=== PATIENT | female | born 1995 | race African-American/Black ===

== ENCOUNTER 2016-10-05 12:56 | Inpatient (IN) | payer OTHER ==
[~2016-10-05] VITALS: Ht 157.5 cm; Wt 75.0 kg
[2016-10-05] VITALS (18 sets, daily range): BP systolic 92–130; BP diastolic 51–75
[2016-10-05] MEDS ORDERED: PRENTAB9 PO (13:02)
[2016-10-05] MEDS ORDERED: LR 1,000 ML IV SCH (14:05)
[2016-10-05] MEDS ORDERED: OXYTOCIN DRIP 30 UNITS in APPROPRIATE DILUENT 1 EA IV SCH (14:15)
[2016-10-05] MEDS: LR 1,000 ML IV SCH (14:47)
[2016-10-05 15:12] LABS: MEAN CORPUSCULAR HEMOGLOBIN 29.7 pg (27.0-33.0); MEAN CORPUSCULAR HGB CONC 35.5 g/dl (32.0-36.5); MEAN CORPUSCULAR VOLUME 83.8 fl (80.0-96.0); RED CELL DISTRIBUTION WIDTH 13.9 % (11.5-14.5); WHITE BLOOD COUNT 6.4 K/mm3 (4.0-10.0)
[2016-10-05 15:56] LABS: HBSAG L&D NEGATIVE (NEGATIVE)
--- NOTE | 2016-10-05 17:28 | HPEPDOC ---
Obstetrical History & Physical General Date of Admission Oct 05, 2016 at 12:56 History of Present Illness 21 y/o at 39+0 seen by myself in clinic for an acute visit due to decr'd FM and found to have oligohydramnios. No VB or LOF. Information Provided By: Patient Care Care: Good Care Dating Final EDC: Oct 12, 2016 Final EDC by: LMP, 1st trimester (US) Antepartum Course Diagnos(e)s h/o mrsa. 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 (x1 2009 (D&C)) Past Medical History Medical History denies other than axillary mrsa 2006-no abscesses since Surgical History: Dilatation and Curettage Family History Significant Family History: No pertinent family hx Social History Marital Status: Family situation: Spouse/partner home Psychosocial History: No pertinent psych hx * Smoker: non-smoker Alcohol: Denies Drugs: denies Abuse Violence Screening Have you been hit/kicked/slapp: No Have you been sexually assault: No Imunizations Tdap status: current Influenza Status: current Allergies Coded Allergies: No Known Allergies (Unverified , 10/05/16) Medications Scheduled Multivitamins/ ( 27-0.8 mg) 1 Tab Tab, 1 TAB PO DAILY Physical Examination Physical Examination GENERAL: Alert and oriented times three. ABDOMEN: Gravid and non-tender to touch. FETUS: vertex (VTX) by sterile vaginal examination, FB placed with 60 cc's NS in the balloon EXTREMITIES: No edema. Vital Signs/I&O Vital Signs Date Time Temp Pulse Resp B/P (MAP) Pulse Ox O2 Delivery O2 Flow Rate FiO2 10/05/16 16:31 85 18 119/56 (77) 10/05/16 13:22 98.2 Laboratory Data 24H LABS Laboratory Tests 2 10/05/16 14:48: Syphilis Serology NONREACTIVE, Hepatitis B Surface Antigen (Rapid) NEGATIVE 10/05/16 16:01: Serology Scanned Report Hepatitis B Testing CBC/BMP Laboratory Tests 10/05/16 14:44 Red Blood Count 4.49, Mean Corpuscular Volume 83.8, Mean Corpuscular Hemoglobin 29.7, Mean Corpuscular Hemoglobin Concent 35.5, Red Cell Distribution Width 13.9 Urine Culture: No Growth Pertinent Laboratoy Data Blood Type: A+ RBC Antibody Screen: Negative HIV: Negative Hepatitis B: Negative Hepatitis C: Unknown Rapid Plasma Reagin: Nonreactive Rubella: Immune Varicella: Nonreactive Chlamydia/Gonorrhea: Negative Group B Streptococcus: Negative Quad Screen Test: Declined Cystic Fibrosis: Negative Glucose Tolerance Test: 89 Anatomy Ultrasound Placenta Location: Anterior Normal Anatomy: Yes Placenta Previa: No Vaginal Examination Dilation: 1cm Effacement: 60-70% Station: -3 Cervical Consistency: Medium Cervical Position: Middle Assessment Variability: Moderate Accelerations: Positive Decelerations: None Tocometer Contractions: Yes Frequency: regular (now on 6 mu/min pitocin) Duration: greater than 60 seconds Strength: palpated as mild, palpated as moderate Assessment/Plan Assessment Decr'd DFM and oligohydramnios. IOL indicated. 39+0. MRSA essentially neg now , just finished a PO course of clindamycin. Plan Admit and orient. Directory Assistance Operator and consent. Diet: clrs Group B Streptococcus (GBS) neg Labs and intravenous (IV) per unit protocol. Counseled on Pitocin and induction of labor (IOL). Lactated Ringers (LR): Bolus 1000 mL prior to epidural if decides to do an epidural, now at 125 mL/hr. Anticipate normal spontaneous delivery () C-S as appropriate. Recheck 1-2 hrs after FB falls out. Sessions CHARANJIT WEISS MD Oct 05, 2016 17:28
[2016-10-06] VITALS (50 sets, daily range): BP systolic 79–193; BP diastolic 42–125
--- NOTE | 2016-10-06 01:39 | IPNPDOC ---
Text Note Date of Service The patient was seen on 10/06/16. NOTE FB out 0100 NST Cat 1, reg ctx's, pit at 8 mu/min Cx 4-/0 Doing well, likely AROM with next check in ~2 hrs, sooner prn Sessions VS,Rajeev, I+O VSRajeev, I+O Laboratory Tests 10/05/16 14:44 Red Blood Count 4.49, Mean Corpuscular Volume 83.8, Mean Corpuscular Hemoglobin 29.7, Mean Corpuscular Hemoglobin Concent 35.5, Red Cell Distribution Width 13.9 Vital Signs Date Time Temp Pulse Resp B/P (MAP) Pulse Ox O2 Delivery O2 Flow Rate FiO2 10/06/16 01:26 63 102/63 (76) 10/05/16 18:26 18 10/05/16 16:56 98.5 SESSIONS,CHARANJIT Strong MD Oct 06, 2016 01:39
[2016-10-06] MEDS: LR 1,000 ML IV SCH ×2 (02:58→10:10)
--- NOTE | 2016-10-06 04:27 | IPNPDOC ---
Text Note Date of Service The patient was seen on 10/06/16. NOTE NST Cat 1, reg ctx's, pit at 6 Cx 5/-1, AROM with clr fluid Doing well, if no signif change will place IUPC in ~2 hrs Sessions VS,Rajeev, I+O VSRajeev, I+O Laboratory Tests 10/05/16 14:44 Red Blood Count 4.49, Mean Corpuscular Volume 83.8, Mean Corpuscular Hemoglobin 29.7, Mean Corpuscular Hemoglobin Concent 35.5, Red Cell Distribution Width 13.9 Vital Signs Date Time Temp Pulse Resp B/P (MAP) Pulse Ox O2 Delivery O2 Flow Rate FiO2 10/06/16 02:58 98.5 74 105/64 (78) 10/05/16 18:26 18 SESSIONS,CHARANJIT Strong MD Oct 06, 2016 04:27
[2016-10-06] MEDS ORDERED: FENTANYL 2MCG/ML ROPIVACAINE 0.2% IN 0.9% NACL 200ML IVBAG As Ordered ONE (05:02)
[2016-10-06] MEDS ORDERED: ONDANSETRON 4MG/2ML VIAL (J2405) IV PRN ×2 (06:10→12:15)
[2016-10-06] MEDS ORDERED: EPIDURAL/PCA KEYS XX PRN (06:10)
[2016-10-06] MEDS ORDERED: EPIDURAL COMMENT XX SCH (06:10)
[2016-10-06] MEDS ORDERED: NALOXONE INJ 0.4 MG/1 ML VIAL (J2310) IV PRN (06:10)
[2016-10-06] MEDS ORDERED: REFRIGERATOR IV KEYS XX PRN (06:10)
[2016-10-06] MEDS ORDERED: ePHEDrine SULFATE 25 MG/5 ML(5MG/ML) SYRINGE IV PRN (06:10)
[2016-10-06] MEDS ORDERED: FENTANYL/ROPIVACAINE/NACL BAG 200 ML EPIDURAL SCH (06:10)
[2016-10-06] MEDS ORDERED: diphenhydrAMINE INJ 50MG/ML VIAL (J1200) IV PRN (06:10)
[2016-10-06] MEDS ORDERED: LACTATED RINGER'S 1000 ML IV PRN (06:10)
--- NOTE | 2016-10-06 06:48 | IPNPDOC ---
Text Note Date of Service The patient was seen on 10/06/16. NOTE Now s/p epidural, good relief NST Cat1, pitocin at 4 mu/min Cx /0, IUPC placed due to minimal change Will adjust pit to adeq MVU's SBAR to Blake PINEDA at 0730 Sessions VS,Fishbone, I+O VS, Fishbone, I+O Laboratory Tests 10/05/16 14:44 Red Blood Count 4.49, Mean Corpuscular Volume 83.8, Mean Corpuscular Hemoglobin 29.7, Mean Corpuscular Hemoglobin Concent 35.5, Red Cell Distribution Width 13.9 Vital Signs Date Time Temp Pulse Resp B/P (MAP) Pulse Ox O2 Delivery O2 Flow Rate FiO2 10/06/16 05:26 90 127/76 (93) 10/06/16 04:56 98.4 10/05/16 18:26 18 SESSIONS,CHARANJIT Strong MD Oct 06, 2016 06:48
[2016-10-06] MEDS: DOCUSATE SODIUM 100 MG CAP PO SCH ×2 (09:00→21:00)
[2016-10-06] MEDS: PRENATAL VITAMINS CHEWABLE TABLET PO SCH (09:00)
[2016-10-06] MEDS ORDERED: METHYLERGONOVINE MALEATE 0.2 MG/ML VIAL (J2210) IM PRN (12:15)
[2016-10-06] MEDS ORDERED: PROMETHAZINE 25 MG TAB PO PRN (12:15)
[2016-10-06] MEDS ORDERED: DIBUCAINE 1% OINTMENT 30GM TOP PRN (12:15)
[2016-10-06] MEDS ORDERED: MEASLES,MUMPS,RUBELLA VACCINE INJ (MMR-II) (90707) SC SCH (12:15)
[2016-10-06] MEDS ORDERED: miSOPROStol 200 MCG TAB (S0191) PR ONE (12:15)
[2016-10-06] MEDS ORDERED: RHOGAM 300 MCG (1500 IU) INJ (J2790) IM SCH (12:15)
[2016-10-06] MEDS ORDERED: ACETAMINOPHEN 500 MG TAB PO PRN (12:15)
[2016-10-06] MEDS ORDERED: OXYTOCIN 30 UNITS IN 0.9% NaCl 500ML IV BAG (J2590) As Ordered ONE (12:20)
[2016-10-06] MEDS ORDERED: OXYTOCIN DRIP 30 UNITS in APPROPRIATE DILUENT 1 EA IV SCH ×2 (12:30→13:00)
[2016-10-06] MEDS: IBUPROFEN 800 MG TAB PO PRN (14:59)
[2016-10-06] MEDS ORDERED: miSOPROStol 200 MCG TAB (S0191) As Ordered ONE (16:32)
[2016-10-07] MEDS: IBUPROFEN 800 MG TAB PO PRN ×2 (03:41→21:21)
[2016-10-07 06:06] VITALS: BP 93/62
[2016-10-07 07:16] LABS: MEAN CORPUSCULAR HGB CONC 35.4 g/dl (32.0-36.5); MEAN CORPUSCULAR VOLUME 84.8 fl (80.0-96.0); WHITE BLOOD COUNT 13.9 K/mm3 (4.0-10.0)
[2016-10-07] MEDS: PRENATAL VITAMINS CHEWABLE TABLET PO SCH (07:45)
[2016-10-07] MEDS: DOCUSATE SODIUM 100 MG CAP PO SCH ×2 (07:45→21:00)
[2016-10-08 06:02] VITALS: BP 94/47
--- NOTE | 2016-10-08 08:39 | IPN ---
DATE OF SERVICE: 10/07/2016 This lady and requested circumcision of their male infant after discussing the risks and benefits of circumcision, the penile block, aftercare, understanding medical and nonmedical indications, signed and witnessed the consent form. We await the clearance by the can inspector.
[2016-10-08] MEDS ORDERED: IBUP-1114 PO (08:47)
[2016-10-08] MEDS ORDERED: ACET50TA PO (08:47)
[2016-10-08] MEDS ORDERED: COLA100C5 PO (08:47)
[2016-10-08] MEDS ORDERED: NUPE1OIN2 TOP (08:47)
[2016-10-08] MEDS: PRENATAL VITAMINS CHEWABLE TABLET PO SCH (09:47)
[2016-10-08] MEDS: DOCUSATE SODIUM 100 MG CAP PO SCH (09:47)
--- NOTE | 2016-10-08 16:02 | DSES ---
DATE OF ADMISSION: 10/05/2016 DATE OF DISCHARGE: 10/08/2016 This lady is a 21-year-old, 2 now para 1 admitted due to oligohydramnios and decreased movement at 39 weeks of gestation. Had an epidural in place. Delivered a live male , 7 pounds 4 ounces, 3290 grams, of 9 and 9 at 1 and 5 minutes, respectively. Admitting hemoglobin 13.4, hematocrit 37.6, platelets 143. Discharge hemoglobin 9.4, hematocrit 26.5 and platelets are 124. Her discharge vital signs: Her blood pressure 94/47, respirations 16, pulse 72, temperature is 98.5. We discussed phlebitis, cystitis, mastitis, endometritis and cellulitis, diet, exercise, pain management, perineal, breast and wound care. On discharge, the rest of the examination: She is normocephalic, atraumatic. Neck: Full range of motion. Pupils equal and reactive to light. Distal pulses symmetric. No evidence of DVT, PE or superficial phlebitis. No CVA tenderness. Uterus two below. Lochia is moderate. Four quadrant bowel sounds are noted. Perineum is normal. No rashes, lesions or pruritus. No arthralgia, myalgia. No complaints of cough, wheezes, shortness of breath or dyspnea on exertion. No chest pain. No bleeding. Neurologically complete. No incontinency, urgency, or frequency. No nausea, vomiting, diarrhea or constipation. No diabetic issues. 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 Family history is noncontributory. She does not smoke, abuse drugs, drink, and there is no domestic violence. She is to a soldier. On discharge, we have a lady that is 21 years of age, delivered a live male . Followup in the office in six weeks' time. She was given her medications on discharge.
== END 2016-10-08 11:30 | disposition home or self-care (01) | DRG 775 ==
LOC: M LDI 12:56 → M OBS 10-06 15:29
PROVIDERS: ADMIT Obstetrics & Gynecology; ATTEND Obstetrics & Gynecology
PROC: 3E033VJ Introduction of Other Hormone into Peripheral Vein, Percutaneous Approach (ICD-10-PCS; 2016-10-05)
PROC: 10E0XZZ Delivery of Products of Conception, External Approach (ICD-10-PCS; principal; 2016-10-06)
PROC: 10907ZC Drainage of Amniotic Fluid, Therapeutic from Products of Conception, Via Natural or Artificial Opening (ICD-10-PCS; 2016-10-06)
DX: O41.03X0 Oligohydramnios, third trimester, not applicable or unspecified (principal); Z37.0 Single live birth; Z3A.39 39 weeks gestation of pregnancy; O36.8130 Decreased fetal movements, third trimester, not applicable or unspecified; Z79.899 Other long term (current) drug therapy

== ENCOUNTER → 2017-11-23 | Outpatient (CLI) | payer OTHER | LOC: M RAD 09:33 | DX: O44.31 Partial placenta previa with hemorrhage, first trimester (principal); Z3A.13 13 weeks gestation of pregnancy | CPT/HCPCS: 76801 ==

== ENCOUNTER → 2019-06-06 | Outpatient (REF) | payer OTHER ==
[~2019-06-06] MED LIST: COLA100C5 PO; IBUP-1114 PO; MAPA500T2 PO; NUPE1OIN2 TOP; PRENTAB9 PO
== END ==
LOC: M SFHCLERA 19:49
PROVIDERS: ATTEND Nurse Practitioner Family
DX: J02.9 Acute pharyngitis, unspecified (principal)

== ENCOUNTER 2020-10-18 02:24 | Inpatient (IN) | payer OTHER ==
[~2020-10-18] VITALS: Ht 157.5 cm; Wt 96.4 kg
[2020-10-18] VITALS (8 sets, daily range): BP systolic 130–154; BP diastolic 77–99
[~2020-10-18 02:24] MED LIST changes: +ACET-907 PO; +ALLE180T33 PO; +SING10TA32 PO; +ZYRTTAB8 PO
[2020-10-18] MEDS ORDERED: RHOGAM 300 MCG (1500 IU) INJ (J2790) IM SCH (02:40)
[2020-10-18] MEDS ORDERED: OXYTOCIN DRIP 30 UNITS in IV 1 EA IV SCH (02:40)
[2020-10-18] MEDS ORDERED: IBUPROFEN 600MG TAB PO PRN (02:40)
[2020-10-18] MEDS ORDERED: ACETAMINOPHEN TAB 650MG DOSE (2X325MG) PO PRN (02:40)
[2020-10-18] MEDS ORDERED: DIBUCAINE 1% OINTMENT 30GM TOP PRN (02:40)
[2020-10-18] MEDS ORDERED: DOCUSATE SODIUM 100MG CAPSULE PO PRN (02:40)
[2020-10-18] MEDS ORDERED: MEASLES,MUMPS,RUBELLA VACCINE INJ (MMR-II) (90707) SC SCH (02:40)
[2020-10-18] MEDS ORDERED: PROMETHAZINE 25 MG TAB PO PRN (02:40)
[2020-10-18] MEDS ORDERED: OXYTOCIN 30 UNITS IN 0.9% NaCl 500ML IV BAG (J2590) As Ordered ONE (02:44)
[2020-10-18] MEDS: IBUPROFEN 800 MG TAB PO PRN (02:48)
--- NOTE | 2020-10-18 02:51 | HPEPDOC ---
Obstetrical History & Physical General Date of Admission Oct 18, 2020 at 02:24 History of Present Illness 25 yo G4 now P3 precipitously delivered her baby on the side of the road and was brought the hospital by EMS at 38+1 weeks gestation. She reports she felt contractions for about half an hour before delivery. See delivery note for details. Chief Complaint: Contractions, term Information Provided By: Patient Age: 25 : 4 Term: 3 Pre-term: 0 Abortions: 1 Livin Care Care: Good Care (Unable to find records upon presentation to the hospital) Dating Final EDC: Oct 31, 2020 Final EDC for Daily Update: Oct 31, 2020 Past Medical History Past Obstetrical History : Past Obstetrical History: Multigravida ( X3 at term including today's precipitous delivery outside the hospital) Type of Delivery: Spontaneous Vaginal Del. Social History Marital Status: Family situation: Spouse/partner home Psychosocial History: No pertinent psych hx Alcohol: Denies Drugs: denies Imunizations Tdap status: needs (UNK Tdap or Flu vaccine status) Influenza Status: needs (UNK tdap or flu vaccine status) Allergies Coded Allergies: No Known Allergies (Unverified , 10/05/16) Medications Scheduled Cetirizine HCl/Pseudoephedrine (Zyrtec-D Tablet) 1 Each Tab.er.12h, 1 TAB PO DAILY Fexofenadine HCl ([place]és Allergy) 180 Mg Tablet, 1 TAB PO DAILY for allergy symptoms Montelukast Sodium (Singulair) 10 Mg Tablet, 1 TAB PO DAILY No.137/Iron/Folic Acd ( Vitamin Tablet) 1 Tab Tab, 1 TAB PO DAILY Miscellaneous Medications Acetaminophen (Tylenol) 325 Mg Tablet, 1,300 MG PO Physical Examination Physical Examination GENERAL: Alert and oriented times three. ABDOMEN: Fundus firm at U-1 after delivery. No fundal tenderness EXTREMITIES: No edema. Assessment/Plan Assessment 25 yo G4 now P3 precipitously delivered her infant at 38+1 weeks gestation [place] the side of the road and was brought to the hospital by EMS. Plan Admit for routine care. Work on obtaining records. IV access and labs per protocol. Anticipate uncomplicated course. JENNI WILLIAMSON DO Oct 18, 2020 02:51
[2020-10-18 02:59] LABS: HEMATOCRIT 39.8 % (36.0-47.0); MEAN CORPUSCULAR HEMOGLOBIN 27.6 pg (27.0-33.0); MEAN CORPUSCULAR HGB CONC 35.2 g/dl (32.0-36.5); MEAN CORPUSCULAR VOLUME 78.5 fl (80.0-96.0); PLATELET COUNT, AUTOMATED 154 10^3/uL (150-450); RED BLOOD COUNT 5.07 10^6/uL (4.00-5.40); WHITE BLOOD COUNT 8.4 10^3/uL (4.0-10.0)
--- NOTE | 2020-10-18 02:59 | DNPDOC ---
[facility] Delivery Note Delivery Note DATE OF DELIVERY: 18Oct2020 PREDELIVERY DIAGNOSIS: 38+1 weeks gestation and precipitous labor and delivery on the side of the road POST DELIVERY DIAGNOSIS: Delivered. PROCEDURE: Spontaneous vaginal delivery SATELLITE TV TECHNICIAN INSTALLER: Dr. Paul ANESTHESIA: None ESTIMATED BLOOD LOSS: 200 mL. FINDINGS: 6 pound 2 ounce, male infant, immediate Score 7/7 per EMS, Apgars 9/9 while in hospital DELIVERY SUMMARY: Hansa Ramirez is a 25 yo G4 now P3 who started felt contractions for about 30 minutes and then had an urge to push. She did not make it to the hospital in time. She was brought to the hospital by EMS with her . I entered her labor room and the baby was on the warmer under the care of the nurse. Hansa was in the bed and was getting blood drawn and had an IV in place. The three vessel umbilical cord was clamped. 3rd stage was completed with gentle traction on the cord and it was productive of an intact placenta. The uterine fundus was firmed with massage and pitocin was administered IV bolus. Inspection on the cervix, vagina, labia, and perineum revealed a small vaginal floor abrasion that was hemostatic and did not require repair. The fundus was palpated again and was firm. Sponge and instrument counts correct X2. Mother and baby stable when I left the room. DO TERI Payne CHRISTOPHER J. DO Oct 18, 2020 02:59
[2020-10-18] MEDS: ACETAMINOPHEN 500 MG TAB PO PRN ×3 (03:17→20:11)
[2020-10-18] MEDS ORDERED: ZOLO50TA PO (03:42)
[2020-10-18 06:17] LABS: ALT/SGPT 24 U/L (12-78); BILIRUBIN,TOTAL 0.4 MG/DL (0.2-1.0); CREATININE FOR GFR 0.72 MG/DL (0.55-1.30); GLOMERULAR FILTRATION RATE > 60.0 (>60); LDH LACTATE DEHYDROGENASE 393 U/L (84-246); URIC ACID 5.3 MG/DL (2.6-6.0)
[2020-10-18] MEDS: PRENATAL VITAMINS CHEWABLE TABLET PO SCH (08:48)
[2020-10-18 22:45] LABS: HEMATOCRIT 33.1 % (36.0-47.0); MEAN CORPUSCULAR HEMOGLOBIN 27.3 pg (27.0-33.0); MEAN CORPUSCULAR HGB CONC 34.7 g/dl (32.0-36.5); MEAN CORPUSCULAR VOLUME 78.6 fl (80.0-96.0); PLATELET COUNT, AUTOMATED 145 10^3/uL (150-450); RED BLOOD COUNT 4.21 10^6/uL (4.00-5.40); WHITE BLOOD COUNT 9.6 10^3/uL (4.0-10.0)
[2020-10-18 22:48] LABS: HEMOGLOBIN 11.5 g/dl (12.0-15.5)
[2020-10-18 23:11] LABS: ALBUMIN 2.4 GM/DL (3.2-5.2); ALT/SGPT 20 U/L (12-78); BILIRUBIN,TOTAL 0.1 MG/DL (0.2-1.0); BLOOD UREA NITROGEN 11 MG/DL (7-18); CALCIUM LEVEL 8.9 MG/DL (8.5-10.1); CARBON DIOXIDE LEVEL 23 MEQ/L (21-32); CHLORIDE LEVEL 111 MEQ/L (98-107); CREATININE FOR GFR 1.03 MG/DL (0.55-1.30); GLOMERULAR FILTRATION RATE > 60.0 (>60); GLUCOSE, FASTING 99 MG/DL (70-100); POTASSIUM SERUM 4.2 MEQ/L (3.5-5.1); SODIUM LEVEL 143 MEQ/L (136-145); TOTAL PROTEIN 5.7 GM/DL (6.4-8.2)
[2020-10-19] MEDS: IBUPROFEN 800 MG TAB PO PRN ×2 (02:01→21:37)
[2020-10-19 05:46] VITALS: BP 116/73
--- NOTE | 2020-10-19 07:09 | IPNPDOC ---
Progress Note Date of Service: Oct 19, 2020 Day#: 1 Progress Note Hansa Ramirez is a 25 yo G4 now P3 who started felt contractions for about 30 minutes and then had an urge to push. She did not make it to the hospital in time. She was brought to the hospital by EMS with her . 6 pound 2 ounce, male , immediate Score 7/7 per EMS, Apgars 9/9 while in hospital. She has been ambulating, voiding spontaneously without issue and tolerating regular diet. Breast feeding without issue. Reports lochia is like a normal period. Patient is ambulating well. Reports some cramping with . Denies any pain. Voiding and passing flatus without difficulty. OBJECTIVE: VITAL SIGNS: Within normal limits, afebrile. Alert and oriented times three. Breath sounds clear to auscultation. Heart rate: Regular rate and rhythm, no murmurs, rubs or gallops. Abdomen: Fundus firm at U-2. Soft, NTTP. Minimal lochia per patient DTRs 3+ BL LE, no clonus, neg homans ASSESSMENT: Hansa Ramirez is a 25 yo G4 now P3 who started felt contractions for about 30 minutes and then had an urge to push. She did not make it to the hospital in time. She was brought to the hospital by EMS with her infant. 6 pound 2 ounce, male , immediate Score 7/7 per EMS, Apgars 9/9 while in hospital. She has been criteria for GHTN, her tox labs had mild elevation in Cr 1.03 and decrease in PLT 145. I ordered another set for this morning. She denied any symptoms of pre-e. On exam she has hyperreflexia but otherwise was unremarkable. PLAN: 1. Repeat tox labs ordered, will continue to monitor for severe pre-eclampsia 2. Tylenol and Motrin for pain. 3. Encourage breast feeding and ambulation. 4. Vasectomy is planned for contraception, desires minipill and condoms in the interm 5. Plan for BP check within 72h of discharge, at 7d and then Routine PP visit in 6 weeks in clinic. 6. Discussed return precautions at length, educated on si/sx of pre-eclampsia, educated on activity limitations to include pelvic rest. VS, I&O, 24H, Fishbone Vital Signs/I&O Vital Signs Date Time Temp Pulse Resp B/P (MAP) Pulse Ox O2 Delivery O2 Flow Rate FiO2 10/19/20 05:46 97.1 70 14 116/73 (87) 98 Room Air I&O- Last 24 Hours up to 6 AM 10/19/20 06:00 Intake Total 480 ml Balance 480 ml Laboratory Data 24H LABS Laboratory Tests 2 10/18/20 22:23: Nucleated Red Blood Cells % (auto) 0.0, Anion Gap 9, Glomerular Filtration Rate > 60.0, Calcium Level 8.9, Total Bilirubin 0.1#L, Aspartate Amino Transf (AST/SGOT) 16, Alanine Aminotransferase (ALT/SGPT) 20, Alkaline Phosphatase 146H, Total Protein 5.7L, Albumin 2.4L, Albumin/Globulin Ratio 0.7L CBC/BMP Laboratory Tests 10/18/20 22:23 MARICEL HARMON DO Oct 19, 2020 07:09
[2020-10-19 07:44] LABS: HEMATOCRIT 36.5 % (36.0-47.0); HEMOGLOBIN 12.8 g/dl (12.0-15.5); MEAN CORPUSCULAR HEMOGLOBIN 27.6 pg (27.0-33.0); MEAN CORPUSCULAR HGB CONC 35.1 g/dl (32.0-36.5); MEAN CORPUSCULAR VOLUME 78.8 fl (80.0-96.0); PLATELET COUNT, AUTOMATED 137 10^3/uL (150-450); RED BLOOD COUNT 4.63 10^6/uL (4.00-5.40); WHITE BLOOD COUNT 7.4 10^3/uL (4.0-10.0)
[2020-10-19 08:09] LABS: ALBUMIN 2.5 GM/DL (3.2-5.2); ALT/SGPT 18 U/L (12-78); BILIRUBIN,TOTAL 0.2 MG/DL (0.2-1.0); BLOOD UREA NITROGEN 10 MG/DL (7-18); CALCIUM LEVEL 8.6 MG/DL (8.5-10.1); CARBON DIOXIDE LEVEL 23 MEQ/L (21-32); CHLORIDE LEVEL 109 MEQ/L (98-107); CREATININE FOR GFR 0.88 MG/DL (0.55-1.30); GLOMERULAR FILTRATION RATE > 60.0 (>60); GLUCOSE, FASTING 73 MG/DL (70-100); POTASSIUM SERUM 4.3 MEQ/L (3.5-5.1); SODIUM LEVEL 140 MEQ/L (136-145); TOTAL PROTEIN 5.7 GM/DL (6.4-8.2)
[2020-10-19] MEDS: PRENATAL VITAMINS CHEWABLE TABLET PO SCH (09:23)
[2020-10-19] MEDS: ACETAMINOPHEN 500 MG TAB PO PRN (09:41)
[2020-10-19 18:00] VITALS: BP 146/84
[2020-10-20] MEDS: ACETAMINOPHEN 500 MG TAB PO PRN (05:21)
[2020-10-20 06:00] VITALS: BP 136/85
--- NOTE | 2020-10-20 08:54 | IPNPDOC ---
Progress Note Date of Service: Oct 20, 2020 Day#: 2 Progress Note aHnsa Ramirez is a 25 yo G4 now P3 who started felt contractions for about 30 minutes and then had an urge to push. She did not make it to the hospital in time. She was brought to the hospital by EMS with her . 6 pound 2 ounce, male , immediate Score 7/7 per EMS, Apgars 9/9 while in hospital. She has been ambulating, voiding spontaneously without issue and tolerating regular diet. Breast feeding without issue. Reports lochia is less than a normal period. Patient is ambulating well. Reports some cramping with . Denies any pain. Voiding and passing flatus without difficulty. Planning on minipill until completes vasectomy. OBJECTIVE: VITAL SIGNS: Within normal limits, afebrile. Alert and oriented times three. Breath sounds clear to auscultation. Heart rate: Regular rate and rhythm, no murmurs, rubs or gallops. Abdomen: Fundus firm at U-2. Soft, NTTP. Minimal lochia per patient DTRs 3+ BL LE, no clonus, neg homans ASSESSMENT: Hansa Ramirez is a 25 yo G4 now P3 who started felt contractions for about 30 minutes and then had an urge to push. She did not make it to the ospital in time. She was brought to the hospital by EMS with her infant. 6 pound 2 ounce, male infant, immediate Score 7/7 per EMS, Apgars 9/9 while in hospital. She has been criteria for GHTN, her tox labs had mild elevation in Cr 1.03 and decrease in PLT 145. Repeat labs with Cr improving at 0.8 and Plt stable. PLAN: 1. Repeat preeclampsia labs stable. 2. Tylenol and Motrin for pain. 3. Encourage breast feeding and ambulation. 4. Vasectomy is planned for contraception, desires minipill and condoms in the interm 5. Plan for BP check within 72h of discharge, at 7d and then Routine PP visit in 6 weeks in clinic. 6. Discussed return precautions at length, educated on si/sx of pre-eclampsia, educated on activity limitations to include pelvic rest. VS, I&O, 24H, Fishbone Vital Signs/I&O Vital Signs Date Time Temp Pulse Resp B/P (MAP) Pulse Ox O2 Delivery O2 Flow Rate FiO2 10/20/20 06:00 97.4 74 16 136/85 (102) 10/19/20 18:00 100 Room Air Laboratory Data 24H LABS Laboratory Tests 10/18/20 22:23 10/19/20 07:28 WILLIAM CERDA M.D. Oct 20, 2020 08:54
[2020-10-20] MEDS: PRENATAL VITAMINS CHEWABLE TABLET PO SCH (09:45)
--- NOTE | 2020-10-20 10:05 | OBDS ---
[facility] Obstetrical Discharge Sum. Obstetrical Discharge Summary Date: Oct 20, 2020 Delivery Hansa Ramirez is a 25 yo G4 now P3 who started felt contractions for about 30 minutes and then had an urge to push. She did not make it to the hospital in time. She was brought to the hospital by EMS with her . 6 pound 2 ounce, male , immediate Score 7/7 per EMS, Apgars 9/9 while in hospital. She has been ambulating, voiding spontaneously without issue and tolerating regular diet. Breast feeding without issue. Reports lochia is less than a normal period. Patient is ambulating well. Reports some cramping with . Denies any pain. Voiding and passing flatus without difficulty. Planning on minipill until completes vasectomy. She met criteria for GHTN , her tox labs had mild elevation in Cr 1.03 and decrease in PLT 145. Repeat labs on PPD 1 with Cr improving at 0.8 and Plt stable. Infant Sex: Male A/P, Post Course List any complications Admission diagnosis: (ambulance delivery). Discharge diagnosis: from vaginal delivery, GHTN Condition at Discharge: stable Discharge Instructions: Home Activity: Ambulate. No heavy lifting >20lbs until 6wk PP Diet: Regular Medications: Tylenol, motrin Follow-up: 7-10 days for BP recheck in clinic, 6 week visit (pt to call and schedule) WILLIAM CERDA M.D. Oct 20, 2020 10:05
== END 2020-10-20 14:20 | disposition home or self-care (01) | DRG 769 ==
LOC: M LDI 02:24 → M OBS 04:30
PROVIDERS: ADMIT Obstetrics & Gynecology; ATTEND Obstetrics & Gynecology
PROC: 10D17ZZ Extraction of Products of Conception, Retained, Via Natural or Artificial Opening (ICD-10-PCS; principal; 2020-10-18)
DX: Z39.0 Encounter for care and examination of mother immediately after delivery (principal); O73.0 Retained placenta without hemorrhage; Z3A.39 39 weeks gestation of pregnancy; O13.5 Gestational [pregnancy-induced] hypertension without significant proteinuria, complicating the puerperium